=== PATIENT | male | born 1940 | race Caucasian/White ===

== ENCOUNTER → 2017-02-19 | Outpatient (CLI) | payer OTHER, MEDICARE ==
[~2017-02-19] MED LIST: IOPAMIDOL (ISOVUE-300) 100 ML BTL ONE
== END ==
LOC: FIMAGING 08:02
PROVIDERS: ATTEND Family Medicine Sports Medicine
DX: M79.604 Pain in right leg (principal); M79.605 Pain in left leg; I70.0 Atherosclerosis of aorta; C91.Z0 Other lymphoid leukemia not having achieved remission; I25.10 Atherosclerotic heart disease of native coronary artery without angina pectoris
CPT/HCPCS: 74177; 93925; Q9967

== ENCOUNTER → 2017-04-30 | Outpatient (CLI) | payer OTHER, MEDICARE | LOC: CIMAGING 08:46 | PROVIDERS: ATTEND Internal Medicine Hematology & Oncology | DX: N43.3 Hydrocele, unspecified (principal); C88.0 Waldenstrom macroglobulinemia; C85.98 Non-Hodgkin lymphoma, unspecified, lymph nodes of multiple sites | CPT/HCPCS: 76870-PO ==

== ENCOUNTER → 2017-07-06 | Outpatient (CLI) | payer OTHER, MEDICARE | LOC: FIMAGING 13:48 | PROVIDERS: ATTEND Physician Assistant | DX: M51.26 Other intervertebral disc displacement, lumbar region (principal); M51.36 Other intervertebral disc degeneration, lumbar region; M48.061 Spinal stenosis, lumbar region without neurogenic claudication ==

== ENCOUNTER → 2018-06-16 | Outpatient (CLI) | payer OTHER, MEDICARE | LOC: BHFA 13:30 | PROVIDERS: ATTEND Internal Medicine Cardiovascular Disease | DX: R06.02 Shortness of breath (principal); I49.1 Atrial premature depolarization; R07.9 Chest pain, unspecified ==

== ENCOUNTER → 2018-06-28 | Outpatient (CLI) | payer OTHER, MEDICARE | LOC: BHLMT 09:30 | PROVIDERS: ATTEND Internal Medicine Cardiovascular Disease | DX: R07.9 Chest pain, unspecified (principal) | CPT/HCPCS: 78452; 93017; A9500; J2785 ==

== ENCOUNTER → 2018-06-30 | Outpatient (CLI) | payer OTHER, MEDICARE | LOC: BHLMT 10:45 | PROVIDERS: ATTEND Internal Medicine Interventional Cardiology | DX: I49.1 Atrial premature depolarization (principal); I10 Essential (primary) hypertension | CPT/HCPCS: 93306-PO ==

== ENCOUNTER 2018-07-08 11:35 | Observation (INO) | payer OTHER, MEDICARE ==
[~2018-07-08 11:35] MED LIST changes: +ACETAMINOPHEN 325 MG TAB PO PRN; +ASPIRIN EC 325 MG TAB PO ONE; +DIAZEPAM 5 MG TAB PO ONE; +FAMOTIDINE 20 MG TAB PO ONE; -IOPAMIDOL (ISOVUE-300) 100 ML BTL ONE; +LIDOCAINE 1% 300 MG/30 ML SDV ONE; +MIDAZOLAM 2 MG/2 ML VIAL ONE; +NITROGLYCERIN 0.4 MG BTL SL PRN; +NS 1,000 ML IV SCH; +TEMAZEPAM 15 MG CAP PO PRN; +diphenhydrAMINE 25 MG CAP PO ONE; +fentaNYL 100 MCG/2 ML INJ ONE
[2018-07-08] MEDS ORDERED: IOPAMIDOL (ISOVUE-370) 150 ML BTL IV ONE (11:36)
[2018-07-08] MEDS ORDERED: ASPIRIN EC 325 MG TAB PO ONE (12:08)
[2018-07-08] MEDS ORDERED: diphenhydrAMINE 25 MG CAP PO ONE (12:08)
[2018-07-08] MEDS ORDERED: DIAZEPAM 5 MG TAB ONE (12:08)
[2018-07-08] MEDS ORDERED: FAMOTIDINE 20 MG TAB ONE (12:08)
[2018-07-08 12:30] LABS: PLATELET COUNT 372 10^3/uL (150-400)
[2018-07-08 12:41] LABS: INR 1.03 (0.83-1.16); PROTIME(PATIENT) 13.7 SEC (12.0-15.0)
[2018-07-08] MEDS ORDERED: VERAPAMIL 5 MG/2 ML VIAL ONE (12:45)
[2018-07-08] MEDS ORDERED: HEPARIN 10,000 UNIT/10 ML MDV (1,000 UNIT/ML) ONE (12:45)
--- NOTE | 2018-07-08 12:47 | PDPROPOC ---
Sedation Plan of Care Sedation Plan of Care: vital signs stable, mental status noted, patient educated of risks, benefits, alternatives, patient can tolerate sedation ASA Classification: ASA 3 Planned drugs: fentanyl, midazolam Mallampati Score: Class 2 Mallampati Reference Image: Patient passed 3-3-2 rule?: Yes
--- NOTE | 2018-07-08 12:48 | PDHPUP ---
History & Physical Update H&P update statement: This history and physical update is based on an assessment of the patient which was completed after admission or registration (within 24 hours), but prior to the surgery/procedure. H&P update: H&P reviewed & patient examined (Patient has high risk stress test CCS Class IV angina), no change in patient's condition since H&P completed
[2018-07-08] MEDS ORDERED: ONDANSETRON 4 MG/2 ML VIAL ONE (13:05)
--- NOTE | 2018-07-08 13:07 | CPEKG ---
Test Reason : OPEN Blood Pressure : / mmHG Vent. Rate : 077 BPM Atrial Rate : 077 BPM P-R Int : 176 ms QRS Dur : 082 ms QT Int : 364 ms P-R-T Axes : 061 001 120 degrees QTc Int : 412 ms Sinus rhythm Repol abnrm consider ischemia, anterolateral Confirmed by Goran Arango ([id number]) on 07/08/2018 1:06:51 PM Referred By: Confirmed By:Goran Arango
--- NOTE | 2018-07-08 13:17 | PDDXCAT ---
Diagnostic Cath Note - . Date: 07/08/18 Certified Nuclear Medicine Technologist: Alfonso Indication: CCC Class III and IV angina on medical treatment High-risk criteria on non-invasive testing: stress-induced large perfusion defect (particularly if anterior) - Procedure Access: right wrist Procedure: left heart catheterization, right heart catheterization - Materials Left Heart Cath size: 6F Left Heart Cath materials: JL3.5, JR4.0, pigtail, other (6 azeri 3.5 EBU GUIDING CATHETER) Right Heart Cath size: 5F - Findings-Left Heart Catheterization LM: 8mm in size without evidence of atherosclerosis LAD: 4mm in size and subtotally occluded. There is evidence of a 99% obstruction of the LAD proper just distal to the major septal/diagonal takeoff. The diagonal has a 50% ostial stenosis at its takeoff from the LAD. LCX: 4mm in size and gives rise to two important obtuse branches. There is no flow limiting disease. RCA: 4mm in size and dominant. Gives rise to the posterior descending artery and the posterior left ventricular artery. There are luminal irregularities consistent with atherosclerosis. There is 30% stenosis in the mid RCA proximal to the first diagonal branch EDP: 18mmHg LVEF: 65% Wall motion: On the LV gram there is normal LV systolic function. The EF is 65% . There are no resting segmental wall motion abnormalities. 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 There is no gradient on pullback across the aortic valve. There is no evidence of myrtle dissection or aneurysm formation. - Findings-Right Heart Catheterization RA: RV: 40/4/9 PA: 38/15/24 AO: 124/57/89 Complications: NONE Estimated blood loss: <100ml Closure method: Angioseal Assessment: THe patient has critical obstructive disease of the mid LAD successfully treated with ballooon angioplasty and stent implantation with a Synergy 2.75 x 24mm drug eluting stent. Please see interventional details below. The rigth heart pressures were normal without evidence of intracardiac shunting on oxygen saturation evaluation. Plan: Aspirin 81mg along with Plavix 75mg daily should be continued for at least 1 year following drug eluting stent implantation. No elective surgery for the first 3 months. Decisions to stop dual antiplatelet therapy before 1 year should involve our office [facility] at [phone]. Intervention: There was 95% stenosis of the LAD proper that required intervention. A 6 Latvian JL3.5 guiding catheter was used for guide catheter support. A 0.014 Intuition wire was advanced across the lesion under direct flouroscopic and angiographic guidance. A 2.0 x 15mm Emerge balloon was advanced over the wire and the lesion in the mid LAD was primarily angioplastied with 20-30% residual stenosis. The lesion was then stented with a 2.75 x24mm Synergy drug eluting stent at a maximum pressure of 16 atmospheres. There was 0% residual post stent implantation with SHEA III flow pre and post stent implantation.
[2018-07-08] MEDS ORDERED: CLOPIDOGREL BISULFATE 75 MG TAB ONE (14:02)
[2018-07-08] MEDS ORDERED: ONDANSETRON 4 MG/2 ML VIAL IVP PRN (14:21)
[2018-07-08] MEDS ORDERED: ATROPINE SULFATE 1 MG/10 ML SYR IVP PRN (14:21)
[2018-07-08] MEDS ORDERED: CLOPIDOGREL BISULFATE 75 MG TAB PO ONE (14:21)
[2018-07-08] MEDS ORDERED: DICLOFENAC SODIUM 1% 100 GM GEL TP PRN (14:25)
[2018-07-08] MEDS ORDERED: NS 1,000 ML IV SCH (14:30)
--- NOTE | 2018-07-08 15:32 | CPEKG ---
Test Reason : OPEN Blood Pressure : / mmHG Vent. Rate : 070 BPM Atrial Rate : 070 BPM P-R Int : 182 ms QRS Dur : 083 ms QT Int : 399 ms P-R-T Axes : -24 -14 101 degrees QTc Int : 431 ms Sinus rhythm Borderline Nonspecific T abnormalities, lateral leads Confirmed by Goran Arango ([id number]) on 07/08/2018 3:32:29 PM Referred By: Confirmed By:Goran Arango
[2018-07-08] MEDS: ACYCLOVIR 400 MG TAB PO SCH (22:02)
[2018-07-09 04:45] LABS: PLATELET COUNT 311 10^3/uL (150-400)
[2018-07-09] MEDS: ACYCLOVIR 400 MG TAB PO SCH (08:57)
[2018-07-09] MEDS ORDERED: HYDROCHLOROTHIAZIDE 25 MG TAB PO SCH (09:00)
[2018-07-09] MEDS ORDERED: PANTOPRAZOLE SODIUM 40 MG TAB PO SCH (09:00)
[2018-07-09] MEDS ORDERED: LOSARTAN POTASSIUM 50 MG TAB PO SCH (09:00)
[2018-07-09] MEDS ORDERED: NON-FORMULARY NEW DRUG (Losartan/Hydrochlorothiazide [Losartan-Hctz 100-25 Mg Tab] 1 EACH) PO SCH (09:00)
[2018-07-09] MEDS ORDERED: predniSONE 10 MG TAB PO SCH (09:00)
[2018-07-09] MEDS ORDERED: MULTIVITAMINS 1 EACH TAB PO SCH (09:00)
[2018-07-09] MEDS ORDERED: ASPIRIN EC 325 MG TAB PO SCH (09:00)
[2018-07-09] MEDS ORDERED: CLOPIDOGREL BISULFATE 75 MG TAB PO SCH (09:00)
--- NOTE | 2018-07-09 11:09 | GDS ---
DISCHARGE DIAGNOSES: 1. Coronary artery disease with 99% obstruction to the left anterior descending artery proper, statu s post stenting with 2.75 x 24 mm Synergy drug-eluting stent. 2. Polymyalgia rheumatica. 3. Hyperlipidemia. HOSPITAL COURSE: For detailed H and P, please see prior dictation. Briefly, the patient is a 78-yea r-old male with a history of PMR, hypertension, and reflux, who presented to our office complaining o f progressive chest discomfort and dyspnea on exertion with 1-2 blocks of walking. His symptoms had been present for several months. He felt it was related to his PMR and did note that he felt better with elevated doses of prednisone. An echocardiogram showed preserved LV function with mild valvular disease. A nuclear stress test showed a moderate anterior septal and apical ischemia. Ultimately, the decision was made to proceed with an angiogram. This was performed by Dr. Hira Hamilton on er 2017. The left main was without evidence of atherosclerosis. The left anterior descending ar teena had a 99% obstruction of the LAD proper just distal to the major septal diagonal takeoff. The d iagonal had a 50% ostial stenosis. The left circumflex and right coronary artery had mild disease wi thout obstruction. Ultimately, the left anterior descending artery was stented with a 2.75 x 24 mm S ynergy drug-eluting stent with good results. The following morning, the patient denied any chest dis comfort. He was monitored on telemetry and remained in normal sinus rhythm with rare PVCs. His left wrist, where access was obtained for the angiogram, is clean, intact, without any evidence of infect ion or hematoma. He denies any significant discomfort at his wrist site. PHYSICAL EXAMINATION: GENERAL: Patient appears in no acute distress. VITALS: Blood pressure 126/5 7, heart rate 93, oxygen saturation of 89% on room air. Afebrile. LUNGS: Clear to auscultation. N o wheezes, rhonchi, or crackles auscultated. CARDIAC: Regular rate and rhythm, without any signific ant murmurs, rubs, or gallops appreciated. SKIN: Left wrist where access was obtained for the angio gram is clean, intact, without any evidence of infection or hematoma. DISCHARGE MEDICATIONS: Aspirin 325 mg daily, Plavix 75 mg daily. The rest of his medications will r emain the same. He will continue multivitamin, Zovirax 400 mg b.i.d., prednisone 10 mg daily, methot rexate 15 mg on Wednesday, Prevacid 15 mg daily, herbal supplement daily, nitroglycerin sublingual p. r.n. for chest pain, losartan/HCTZ 100/25 mg daily, Voltaren gel 1 applied transdermal q.i.d. p.r.n., amlodipine 2.5 mg daily. PLAN: The patient is currently stable and ready for discharge home. He is aware that he is to [facility] on aspirin and Plavix for a minimum of 1 year. We discussed the addition of statin therapy, but gi wale his chronic myalgias, he was not started on a statin medication. He will discuss this further wi th Dr. Paras Munroe at his followup visit. His LDL is currently 99, and HDL 50. Wrist precautions graham ve been discussed with him today. He will follow up with Dr. Munroe on July 21 at 1 p.m. Greater than 30 minutes was spent coordinating the patient's care today. /[id number]/MODL
--- NOTE | 2018-07-09 11:42 | ASDISCHSUM ---
Discharge Information Plan Status:Home with No Needs Medically Cleared to Leave:07/08/2018 Discharge Date:07/08/2018 CM D/C Disposition:Home, Routine, Self-Care ADT D/C Disposition:Home, Routine, Self-Care Projected Discharge Date:07/08/2018 Transportation at D/C:Family Discharge Delay Reason: Follow-Up Date:07/08/2018 Discharge Slot: Final Diagnosis: Placement Information Patient Contact Information Contact Name:HEBER Relationship: Address:[address] City:[place] Alternate Phone: [facility]/Zip Code:[place] [address] Email: Financial Information Financial Class:Medicare Primary Plan Desc:MEDICARE OUTPATIENT Primary Plan Number:[id number] Secondary Plan Desc:TIAN/BARB SUPPLEMENT Secondary Plan Number:[id number] Assessment Information LACE LACE Length of stay for Answers: Less than 1 day current admission Acuity / Level of Answers: No Care: Did the patient have an inpatient admission? Comorbidities - select Answers: Coronary Artery Disease all that apply Other Notes: HTN, PMR # of Emergency department Answers: 0 visits in the last 6 months Score: 3 Date Signed: 07/09/2018 11:40 AM Electronically Signed By:ANDREA Levine Case Management Discharge Plan Note Case Management Discharge Discharge Order Complete? Answers: Yes Patient to Obtain Answers: via Family Medications Transportation Arranged Answers: Family/Friends Discharge Comments Notes: Pt is s/p cardiac catherization. He is discharging home with his and no CM needs. He will follow up with cardiology. Date Signed: 07/09/2018 11:41 AM Electronically Signed By:Elana Prado, BUSINESS OPERATIONS DIRECTOR Intervention Information
[2018-07-09 12:09] VITALS: BP 148/79
--- NOTE | 2018-07-09 13:48 | CPEKG ---
Test Reason : OPEN Blood Pressure : / mmHG Vent. Rate : 076 BPM Atrial Rate : 076 BPM P-R Int : 173 ms QRS Dur : 082 ms QT Int : 357 ms P-R-T Axes : 059 011 105 degrees QTc Int : 402 ms Sinus rhythm Nonspecific T abnormalities, lateral leads Consider TANIKA Confirmed by Goran Arango ([id number]) on 07/09/2018 1:48:00 PM Referred By: Confirmed By:Goran Arango
[2018-07-13] MEDS ORDERED: METHOTREXATE 2.5 MG TAB PO SCH (14:25)
== END 2018-07-09 13:00 | disposition home or self-care (01) ==
LOC: FCATH 11:35 → F2W 14:22
PROVIDERS: ADMIT Internal Medicine Cardiovascular Disease; ATTEND Internal Medicine Cardiovascular Disease
DX: I25.10 Atherosclerotic heart disease of native coronary artery without angina pectoris (principal); R94.39 Abnormal result of other cardiovascular function study; M35.3 Polymyalgia rheumatica; E78.5 Hyperlipidemia, unspecified; K21.9 Gastro-esophageal reflux disease without esophagitis; C88.0 Waldenstrom macroglobulinemia; R60.9 Edema, unspecified; N40.0 Benign prostatic hyperplasia without lower urinary tract symptoms; Z82.49 Family history of ischemic heart disease and other diseases of the circulatory system; Z85.6 Personal history of leukemia; Z79.52 Long term (current) use of systemic steroids
CPT/HCPCS: 93005; 93460; C1725; C1769; C1874; C1887; C9600; J1644; J2250; J2405; J3010; J7512; Q9967

== ENCOUNTER 2018-11-12 10:47 | Emergency (ER) | payer OTHER, MEDICARE ==
[2018-11-12 11:02] VITALS: BP 139/64
--- NOTE | 2018-11-12 11:26 | EDPHY ---
H & P Stated Complaint: R leg bruising--hit cade on metal 3 days ago-on plavix Time Seen by Provider: 11/12/18 11:06 HPI/ROS: CHIEF COMPLAINT: Injury to right leg HISTORY OF PRESENT ILLNESS: The patient presents the ED for evaluation of injury to his right leg. The patient was hit by a metal pole several days ago. He developed a hematoma to his right anterior cade. The patient reports that it felt slightly warm today which prompted his visit to the emergency department. He had a history of an infected hematoma in the past. The patient is currently taking medications for polymyalgia rheumatica. The patient denies any fever. He is ambulatory. He denies any complaints of acute calf pain. REVIEW OF SYSTEMS: A comprehensive 10 point review of systems is otherwise negative aside from elements mentioned in the history of present illness. Source: Patient Exam Limitations: No limitations - Medical/Surgical History Hx Asthma: No Hx Chronic Respiratory Disease: No Hx Diabetes: No Hx Cardiac Disease: No Hx Renal Disease: No Hx Cirrhosis: No Hx Alcoholism: No Hx HIV/AIDS: No Hx Splenectomy or Spleen Trauma: No Other PMH: HTN, sleep apnea, PROSTATE SURGERY, HERNIA, 07/08/18 [place] w/ stents, LYMPHOMA, glaucoma - Social History Smoking Status: Never smoked - Physical Exam Exam: General Appearance: Alert, no distress Eyes: Pupils equal and round no pallor or injection ENT, Mouth: Mucous membranes moist Respiratory: There are no retractions, lungs are clear to auscultation Cardiovascular: Regular rate and rhythm Gastrointestinal: Abdomen is soft and nontender, no masses, bowel sounds normal Neurological: A&O, normal motor function, normal sensory exam, normal cranial nerves Skin: 2 cm hematoma noted to the right anterior cade, surrounding ecchymosis present, minimal erythema. No significant cellulitis noted to the lower extremity, no evidence of abscess or necrotizing fasciitis clinically Musculoskeletal: Neck is supple nontender Extremities: symmetrical, full range of motion Constitutional: Initial Vital Signs Temperature (C) 37 C 11/12/18 10:58 Heart Rate 68 11/12/18 10:58 Respiratory Rate 16 11/12/18 10:58 Blood Pressure 139/64 H 11/12/18 10:58 O2 Sat (%) 94 11/12/18 10:58 O2 Delivery Mode Room Air Allergies/Adverse Reactions: Opioids - Morphine Analogues Allergy (Severe, Verified 07/06/18 11:39) NAUSEA/VOMITING Home Medications: Medication Instructions Recorded Acyclovir [Zovirax 400 mg (*)] 400 mg PO BID 07/07/18 Diclofenac Sodium 1% [Voltaren Gel 1 radha TP QID PRN 07/07/18 (*)] Herbals/Supplements -Info Only 1 ea PO DAILY 07/07/18 Lansoprazole [Prevacid] 15 mg PO DAILY 07/07/18 Losartan/Hydrochlorothiazide 1 each PO DAILY 07/07/18 [Losartan-Hctz 100-25 mg Tab] Multivitamins [Multivitamin (*)] 1 each PO DAILY 07/07/18 Nitroglycerin [Nitrostat 0.4 mg 0.4 mg SL Q5M PRN 07/07/18 (*)] amLODIPine BESYLATE [Norvasc 2.5 2.5 mg PO DAILY 07/07/18 mg (*)] predniSONE 10 mg PO DAILY 07/07/18 Aspirin EC [Aspirin EC 325 mg (*)] 325 mg PO DAILY tab 07/09/18 Clopidogrel Bisulfate [Plavix (*)] 75 mg PO DAILY #30 tab 07/09/18 Folic Acid [Folic Acid 1 MG (*)] 1 mg PO DAILY 07/12/18 Cephalexin [Keflex] 500 mg PO QID #28 cap 11/12/18 Medical Decision Making ED Course/Re-evaluation: Patient presents the ED for evaluation of a small hematoma to his leg and surrounding ecchymosis. The patient has a history of an infected hematoma in the past. The patient has no evidence of significant cellulitis at this point time. There is a mild degree of warmth noted over the hematoma. Given the patient's history of immunosuppression he will be started on Keflex. The patient is advised to return to the ED for markedly worsening erythema, fever, increasing pain or other concerns. Differential Diagnosis: Differential diagnosis considered includes hematoma, cellulitis, abscess, necrotizing fasciitis Departure - Departure Disposition: Home, Routine, Self-Care Clinical Impression: Hematoma Hematoma of leg Qualifiers: Encounter type: initial encounter Laterality: right Qualified Code(s): S80.11XA - Contusion of right lower leg, initial encounter Condition: Good Instructions: Hematoma (ED) Additional Instructions: 1. Take antibiotics as directed for next 7 days. 2. Return to the ED for markedly worsening pain, swelling, redness, fever or other concerns. Referrals: Rustam Farrar MD [Primary Care Provider] - As per Instructions
== END 2018-11-12 11:39 | disposition home or self-care (01) ==
DX: S80.11XA Contusion of right lower leg, initial encounter (principal); M35.3 Polymyalgia rheumatica; W22.8XXA Striking against or struck by other objects, initial encounter; Y99.9 Unspecified external cause status

== ENCOUNTER → 2018-11-16 | Outpatient (CLI) | payer OTHER, MEDICARE | LOC: GIMAGING 14:28 | PROVIDERS: ATTEND Internal Medicine | DX: M79.661 Pain in right lower leg (principal) | CPT/HCPCS: 73590-PO ==

== ENCOUNTER → 2018-12-31 | Outpatient (CLI) | payer OTHER, MEDICARE | LOC: GIMAGING 17:03 | PROVIDERS: ATTEND Nurse Practitioner Family | DX: M79.605 Pain in left leg (principal) | CPT/HCPCS: 73590-PO ==

== ENCOUNTER → 2019-01-03 | Outpatient (CLI) | payer OTHER, MEDICARE | LOC: FIMAGING 11:13 | PROVIDERS: ATTEND Physician Assistant Medical | DX: S90.02XA Contusion of left ankle, initial encounter (principal) ==

== ENCOUNTER 2019-01-11 12:50 | Emergency (ER) | payer OTHER, MEDICARE ==
--- NOTE | 2019-01-11 13:09 | EDPHY ---
H & P Time Seen by Provider: 01/11/19 13:02 HPI/ROS: Chief complaint. Rash HPI. 78-year-old male presents emergency department with hives. Hives began last night. About 2 months ago the patient had a contusion to the right lower extremity. Did not break the skin. Apparently there was concern for infection and so he was treated x2 with Keflex for 10 days. It seemed to be getting better. He then had a similar injury to the left cade while working in his wood shop about 2 weeks ago. Again no break in the skin but there was concern that it was not getting better and so he was prescribed again Keflex 10 days. He is on day 6 of his cephalexin and last night he developed generalized hives. He took Benadryl last night. He has prednisone at home and took 40 mg this morning. He has no difficulty swallowing now but felt some swelling in his throat last night. He feels he is breathing okay. Otherwise no new skin products cleansers clothing. ROS 10 systems were reviewed and negative with the exception of the elements mentioned in the history of present illness Past Medical/Surgical History: Past medical history significant hypertension, sleep apnea, prostate surgery, mi with stents, lymphoma, glaucoma Social History: , nonsmoker, no alcohol Smoking Status: Never smoked Physical Exam: General Appearance: Alert pleasant well-developed male mild distress. Vital signs are stable Eyes: Pupils equal and round no pallor or injection. ENT, Mouth: Mucous membranes are moist. No stridor. Swallowing secretions. No obvious swelling Respiratory: There are no retractions, lungs are clear to auscultation. Cardiovascular: Regular rate and rhythm. Gastrointestinal: Abdomen is soft and nontender, no masses, bowel sounds normal. Neurological: Awake and alert, sensory and motor exams grossly normal. Skin: Generalized hives to trunk and extremities. Musculoskeletal: Neck is supple nontender. Extremities symmetrical, full range of motion. Psychiatric: Patient is oriented X 3, there is no agitation. Constitutional: Initial Vital Signs Temperature (C) 36.5 C 01/11/19 12:51 Heart Rate 83 01/11/19 12:51 Respiratory Rate 18 01/11/19 12:51 Blood Pressure 168/84 H 01/11/19 12:51 O2 Sat (%) 93 01/11/19 12:51 O2 Delivery Mode Room Air Allergies/Adverse Reactions: Opioids - Morphine Analogues Allergy (Severe, Verified 11/14/18 11:39) NAUSEA/VOMITING keflex Allergy (Uncoded 01/11/19 12:56) Home Medications: Medication Instructions Recorded Acyclovir [Zovirax 400 mg (*)] 400 mg PO BID 07/07/18 Diclofenac Sodium 1% [Voltaren Gel 1 radha TP QID PRN 07/07/18 (*)] Herbals/Supplements -Info Only 1 ea PO DAILY 07/07/18 Lansoprazole [Prevacid] 15 mg PO DAILY 07/07/18 Losartan/Hydrochlorothiazide 1 each PO DAILY 07/07/18 [Losartan-Hctz 100-25 mg Tab] Multivitamins [Multivitamin (*)] 1 each PO DAILY 07/07/18 Nitroglycerin [Nitrostat 0.4 mg 0.4 mg SL Q5M PRN 07/07/18 (*)] amLODIPine BESYLATE [Norvasc 2.5 2.5 mg PO DAILY 07/07/18 mg (*)] predniSONE 10 mg PO DAILY 07/07/18 Aspirin EC [Aspirin EC 325 mg (*)] 325 mg PO DAILY tab 07/09/18 Clopidogrel Bisulfate [Plavix (*)] 75 mg PO DAILY #30 tab 07/09/18 Folic Acid [Folic Acid 1 MG (*)] 1 mg PO DAILY 07/12/18 Cephalexin [Keflex] 500 mg PO QID #28 cap 11/12/18 Famotidine [Pepcid] 20 mg PO BID #6 tablet 01/11/19 predniSONE 40 mg PO DAILY #8 tablet 01/11/19 Medical Decision Making Procedures: Benadryl and Pepcid in the ED ED Course/Re-evaluation: Re-evaluation patient is improving. His symptoms are not worsening. No difficulty breathing or swallowing. The patient, his , and I discussed treatment plan including criteria for return importance of follow-up and further evaluation. They have an appointment with their regular physician Dr. Farrar tomorrow. They are encouraged to keep this appointment Differential Diagnosis: Allergic reaction manifesting as hives most likely due to his use of cephalexin. No evidence for anaphylaxis - Data Points Medications Given: Discontinued Medications Diphenhydramine HCl (Benadryl) 25 mg PO EDNOW ONE Stop: 01/11/19 13:46 Last Admin: 01/11/19 13:54 Dose: 25 mg Famotidine (Pepcid) 40 mg PO EDNOW ONE Stop: 01/11/19 13:46 Last Admin: 01/11/19 13:53 Dose: 40 mg Departure - Departure Disposition: Home, Routine, Self-Care Clinical Impression: Urticaria Allergic reaction Qualifiers: Encounter type: initial encounter Qualified Code(s): T78.40XA - Allergy, unspecified, initial encounter Condition: Good Instructions: Urticaria (ED) Additional Instructions: Benadryl 25 mg every 6-8 hours for the hives. Pepcid twice daily next 3 days for hives Prednisone 40 mg daily for 4 days Discontinue Keflex Return for worsening symptoms Recheck by Dr. Farrar tomorrow Referrals: Rustam Farrar MD [Primary Care Provider] - 1 day without fail Prescriptions: Famotidine [Pepcid] 20 mg PO BID #6 tablet predniSONE 40 mg PO DAILY #8 tablet
[2019-01-11] MEDS ORDERED: FAMOTIDINE 20 MG TAB PO ONE (13:45)
[2019-01-11] MEDS ORDERED: diphenhydrAMINE 25 MG CAP PO ONE (13:45)
[2019-01-11 14:36] VITALS: BP 150/79
== END 2019-01-11 14:36 | disposition home or self-care (01) ==
DX: T78.40XA Allergy, unspecified, initial encounter (principal); L50.9 Urticaria, unspecified